=== PATIENT | male | born 1975 ===

== ENCOUNTER 2022-02-06 21:40 | Inpatient (IN) ==
[~2022-02-06 21:40] MED LIST: HYDROmorphone 1 MG/1 ML SYRINGE ONE; MIDAZOLAM 2 MG/2 ML VIAL ONE
[2022-02-06] MEDS ORDERED: TIROFIBAN 5,000 MCG/100 ML PREMIX IV ONE (21:56)
[2022-02-06] MEDS ORDERED: TIROFIBAN 5,000 MCG/100 ML PREMIX IV SCH (21:57)
[2022-02-06] MEDS ORDERED: NITROGLYCERIN SL 0.4 MG TABLET SL PRN (22:32)
[2022-02-06] MEDS ORDERED: ACETAMINOPHEN 325 MG TABLET PO PRN (22:32)
[2022-02-06] MEDS ORDERED: ONDANSETRON 4 MG/2 ML VIAL IV PRN (22:32)
[2022-02-06] MEDS ORDERED: ZALEPLON 5 MG CAPSULE PO PRN (22:32)
[2022-02-06] MEDS ORDERED: HYDROmorphone 1 MG/1 ML SYRINGE IV PRN (22:32)
[2022-02-06] MEDS ORDERED: PRASUGREL 10 MG TABLET ONE (22:35)
[2022-02-07 00:31] LABS: CKMB % 7.76 %
[2022-02-07 00:49] LABS: High Sensitive Troponin I* 23206.2 ng/L (0-78)
[2022-02-07 04:41] LABS: Basophils % 0.3 % (0.0-0.8); Eosinophils # 0.1 10*3/uL (0.0-0.87); Eosinophils % 0.9 % (0.00-10.9); Hematocrit 37.7 VOL% (42.0-52.0); Hemoglobin 13.4 GM/DL (14.0-18.0); Immature Granulocytes % 0.4 %; Immature Granulocytes Absolute 0.05 #; Lymphocytes # 3.4 10*3/uL (1.4-4.0); Lymphocytes % 28.3 % (21.2-54.2); Mean Corpuscular HGB Conc 35.5 GM/DL (32-36); Mean Corpuscular Volume 90.4 FL (87-102); Mean Platelet Volume 10.7 FL (9.6-12.0); Monocytes # 0.6 10*3/uL (0.11-0.8); Monocytes % 4.9 % (1.7-12.7); Neutrophils % 65.2 % (38.7-73.9); Platelet Count 187 T/CUMM (130-400); Red Blood Count 4.17 MC/CUMM (3.8-5.5); Red Cell Distribution Width 12.9 % (9.3-17.3); White Blood Count 12.2 T/CUMM (4-12)
[2022-02-07 05:41] LABS: CKMB % 8.57 %; Calcium 6.9 MG/DL (8.5-10.1); Osmolality,Calculated 284.3 MOS/KG (273-304); Potassium 2.9 MMOL/L (3.5-5.1)
[2022-02-07 05:44] LABS: High Sensitive Troponin I* 79319.1 ng/L (0-78)
[2022-02-07] MEDS: POTASSIUM CHLORIDE 20 MEQ TABLET PO PRN ×7 (06:40→22:59)
[2022-02-07] MEDS: ROSUVASTATIN 20 MG TABLET PO SCH (09:04)
[2022-02-07] MEDS: ASPIRIN EC 81 MG TABLET PO SCH (09:04)
[2022-02-07] MEDS: PRASUGREL 10 MG TABLET PO SCH (09:04)
[2022-02-07] MEDS: DAPAGLIFLOZIN 10 MG TABLET PO SCH (09:05)
[2022-02-07] MEDS: carvediloL 3.125 MG TABLET PO SCH ×2 (09:05→20:09)
[2022-02-07] MEDS: SPIRONOLACTONE 25 MG TABLET PO SCH (09:05)
[2022-02-07] MEDS: LOSARTAN 25 MG TABLET PO SCH (09:06)
[2022-02-07] MEDS ORDERED: DEXTROSE 10% 250 ML BAG IV PRN (09:33)
[2022-02-07] MEDS ORDERED: GLUCAGON 1 MG VIAL IM PRN (09:33)
[2022-02-07] MEDS: INSULIN REGULAR 100 UNIT/ML SUBCUT SCH ×3 (11:32→20:09)
[2022-02-08] MEDS: POTASSIUM CHLORIDE 20 MEQ TABLET PO PRN (01:07)
[2022-02-08 03:41] LABS: Basophils # 0.1 10*3/uL (0.0-0.2); Basophils % 0.4 % (0.0-0.8); Eosinophils # 0.2 10*3/uL (0.0-0.87); Eosinophils % 1.4 % (0.00-10.9); Hematocrit 37.3 VOL% (42.0-52.0); Immature Granulocytes % 0.3 %; Immature Granulocytes Absolute 0.03 #; Lymphocytes # 3.4 10*3/uL (1.4-4.0); Lymphocytes % 29.1 % (21.2-54.2); Mean Corpuscular HGB Conc 34.9 GM/DL (32-36); Mean Corpuscular Volume 91.9 FL (87-102); Mean Platelet Volume 11.1 FL (9.6-12.0); Monocytes # 0.9 10*3/uL (0.11-0.8); Monocytes % 8.1 % (1.7-12.7); Neutrophils % 60.7 % (38.7-73.9); Platelet Count 171 T/CUMM (130-400); Red Blood Count 4.06 MC/CUMM (3.8-5.5); White Blood Count 11.7 T/CUMM (4-12)
[2022-02-08 03:59] LABS: Calcium 7.9 MG/DL (8.5-10.1); Osmolality,Calculated 281.1 MOS/KG (273-304); Potassium 3.7 MMOL/L (3.5-5.1)
[2022-02-08] MEDS: INSULIN REGULAR 100 UNIT/ML SUBCUT SCH ×4 (08:23→21:14)
[2022-02-08] MEDS: PRASUGREL 10 MG TABLET PO SCH (09:15)
[2022-02-08] MEDS: LOSARTAN 25 MG TABLET PO SCH (09:15)
[2022-02-08] MEDS: DAPAGLIFLOZIN 10 MG TABLET PO SCH (09:15)
[2022-02-08] MEDS: ROSUVASTATIN 20 MG TABLET PO SCH (09:15)
[2022-02-08] MEDS: SPIRONOLACTONE 25 MG TABLET PO SCH (09:16)
[2022-02-08] MEDS: carvediloL 3.125 MG TABLET PO SCH ×2 (09:16→20:47)
[2022-02-08] MEDS: ASPIRIN EC 81 MG TABLET PO SCH (09:18)
[2022-02-08] MEDS ORDERED: MAGNESIUM SULF RIDER 2 GM/50 ML PREMIX IV ONE (11:18)
[2022-02-08 11:50] LABS: Basophils # 0.1 10*3/uL (0.0-0.2); Basophils % 0.5 % (0.0-0.8); Eosinophils # 0.2 10*3/uL (0.0-0.87); Eosinophils % 1.5 % (0.00-10.9); Hematocrit 40.2 VOL% (42.0-52.0); Hemoglobin 13.6 GM/DL (14.0-18.0); Immature Granulocytes % 0.4 %; Immature Granulocytes Absolute 0.04 #; Lymphocytes # 3.1 10*3/uL (1.4-4.0); Lymphocytes % 30.4 % (21.2-54.2); Mean Corpuscular HGB Conc 33.8 GM/DL (32-36); Monocytes # 0.7 10*3/uL (0.11-0.8); Monocytes % 7.1 % (1.7-12.7); Neutrophils % 60.1 % (38.7-73.9); Platelet Count 173 T/CUMM (130-400); Red Blood Count 4.23 MC/CUMM (3.8-5.5); Red Cell Distribution Width 13.2 % (9.3-17.3); White Blood Count 10.3 T/CUMM (4-12)
[2022-02-08 12:24] LABS: Folate 13.12 NG/ML (5.38-24.0); Vitamin B12 331 PG/ML (211-911)
[2022-02-08 12:30] LABS: % Iron Saturation 15.9 % (18-50); Ferritin 148.2 ng/mL (26-388)
[2022-02-08 12:52] LABS: Sedimentation Rate-Westergren 30 MM/HR (0-15)
[2022-02-09 04:33] VITALS: BP 101/65
[2022-02-09 05:50] LABS: Basophils # 0.1 10*3/uL (0.0-0.2); Basophils % 0.6 % (0.0-0.8); Eosinophils # 0.2 10*3/uL (0.0-0.87); Eosinophils % 1.9 % (0.00-10.9); Hematocrit 36.6 VOL% (42.0-52.0); Hemoglobin 12.9 GM/DL (14.0-18.0); Immature Granulocytes % 0.3 %; Immature Granulocytes Absolute 0.03 #; Lymphocytes # 2.8 10*3/uL (1.4-4.0); Lymphocytes % 28.2 % (21.2-54.2); Mean Corpuscular HGB Conc 35.2 GM/DL (32-36); Mean Platelet Volume 11.4 FL (9.6-12.0); Monocytes # 0.9 10*3/uL (0.11-0.8); Monocytes % 9.2 % (1.7-12.7); Neutrophils % 59.8 % (38.7-73.9); Platelet Count 177 T/CUMM (130-400); Red Blood Count 3.98 MC/CUMM (3.8-5.5); Red Cell Distribution Width 12.8 % (9.3-17.3)
[2022-02-09 06:22] LABS: Calcium 8.1 MG/DL (8.5-10.1); Osmolality,Calculated 281.1 MOS/KG (273-304); Potassium 3.3 MMOL/L (3.5-5.1)
[2022-02-09] MEDS: INSULIN REGULAR 100 UNIT/ML SUBCUT SCH (07:34)
[2022-02-09] MEDS: ROSUVASTATIN 20 MG TABLET PO SCH (08:48)
[2022-02-09] MEDS: ASPIRIN EC 81 MG TABLET PO SCH (08:48)
[2022-02-09] MEDS: carvediloL 3.125 MG TABLET PO SCH (08:48)
[2022-02-09] MEDS: SPIRONOLACTONE 25 MG TABLET PO SCH (08:48)
[2022-02-09] MEDS: POTASSIUM CHLORIDE 20 MEQ TABLET PO PRN ×2 (08:48→09:57)
[2022-02-09] MEDS: LOSARTAN 25 MG TABLET PO SCH (08:49)
[2022-02-09] MEDS: PRASUGREL 10 MG TABLET PO SCH (08:49)
[2022-02-09] MEDS: DAPAGLIFLOZIN 10 MG TABLET PO SCH (08:49)
[2022-02-09] MEDS ORDERED: FERROUS SULFATE 325 MG TABLET PO SCH (09:00)
[2022-02-10 11:08] LABS: Hemoglobin A1 (Alkaline) 97.6 % (96.5-98.5); Hemoglobin A2 (Alkaline) 2.4 % (1.5-3.5)
== END 2022-02-09 10:00 | disposition home or self-care (01) | DRG 247 ==
LOC: N.CC 23:22
PROVIDERS: ADMIT Internal Medicine Cardiovascular Disease; ATTEND Internal Medicine Cardiovascular Disease
PROC: CLCCHCL (ICD-10-PCS; 2022-02-06 21:15)